=== PATIENT | male | born 1945 | race Caucasian/White ===

== ENCOUNTER 2020-06-25 15:57 | Emergency (ER) | payer OTHER ==
[~2020-06-25] VITALS: Ht 182.9 cm; Wt 76.9 kg
[2020-06-25 16:10] VITALS: Ht 182.9 cm; Wt 76.9 kg
[2020-06-25] MEDS ORDERED: CRESTOR10 MG PO (16:13)
[2020-06-25] MEDS ORDERED: FLOMAX0.4 MG PO (16:14)
[2020-06-25] MEDS ORDERED: BAYER CHEWABLE81 MG PO (16:14)
[2020-06-25] MEDS ORDERED: ARIXTRA10 MG/0.8 SC (16:14)
[2020-06-25 17:35] LABS: BASOPHILS 0.2 % (0-2); EOSINOPHILS 2.3 % (0-7); HEMATOCRIT 39.2 % (42.0-54.0); HEMOGLOBIN 12.9 g/dL (13.5-17.5); IMMATURE GRANULOCYTES 0.5 % (0-5); LYMPHOCYTES 26.9 % (15-50); MCH 31.1 pg (26.0-34.0); MCHC 32.9 g/dL (31.0-37.0); MCV 94.5 fL (80.0-100.0); MEAN PLATELET VOLUME 10.8 fL (7.4-10.4); MONOCYTES 9.3 % (2-11); NEUTROPHILS 60.8 % (40-80); PLATELET COUNT 172 10x3/uL (130-400); RBC 4.15 10x6/uL (4.20-6.10); RDW 13.1 % (11.5-14.5); WBC 6.1 10x3/uL (4.8-10.8)
[2020-06-25 17:41] LABS: ANION GAP 7.1 mmol/L (8-16); CALCIUM 9.1 mg/dL (8.5-10.1); CARBON DIOXIDE 32.1 mmol/L (21.0-32.0); CREATININE - SERUM 1.3 mg/dL (0.6-1.3); POTASSIUM - SERUM 3.2 mmol/L (3.5-5.1)
[2020-06-25 17:47] LABS: BILIRUBIN - TOTAL 1.29 mg/dL (0.2-1.3); C-REACTIVE PROTEIN 3.9 mg/dL (0.0-0.9); PROTEIN - SERUM 7.2 g/dL (6.4-8.2)
[2020-06-25 18:06] LABS: APTT 34.6 SECONDS (22.8-39.4)
[2020-06-25 18:07] LABS: D-DIMER-QUANTITATIVE 0.6 ug/mLFEU (0.20-0.54); INR 1.11 (0.85-1.17); PROTIME 14.3 SECONDS (11.6-15.0)
[2020-06-25 18:53] LABS: BILIRUBIN NEGATIVE (NEGATIVE); GLUCOSE NEGATIVE (NEGATIVE); KETONE MODERATE mg/dL (NEGATIVE); NITRITE NEGATIVE (NEGATIVE); UROBILINOGEN NORMAL (NORMAL)
[2020-06-25 19:07] LABS: ERYTHROCYTE SEDIMENTATION RATE 12 mm/hr (0-20)
[2020-06-25] MEDS ORDERED: CLINDAMYCIN HC300 MG PO (20:44)
[2020-06-25 21:25] VITALS: BP 120/68
== END 2020-06-25 21:26 | disposition home or self-care (01) ==
LOC: D.ER 15:57
PROVIDERS: Emergency Medicine
DX: L03.113 Cellulitis of right upper limb (principal); S93.402A Sprain of unspecified ligament of left ankle, initial encounter; W22.8XXA Striking against or struck by other objects, initial encounter; M25.521 Pain in right elbow